=== PATIENT | male | born 1995 | race Caucasian/White ===

== ENCOUNTER → 2017-01-20 10:06 | Day surgery (SDC) | payer OTHER ==
[~2017-01-20 10:06] MED LIST: Bacitracin OINTMENT* 0.5% 0.5 oz TUBE ONE; Buffered Lidocaine 1% SYR 3ML* 3 ML/SYR SYRINGE INTRADERM ONE; Bupivacaine 0.25% W/EPI* 50 ML VIAL ONE; Dexamethasone IV* 4 MG/ML 1 ML (4 MG) IV SLOW PU ONE; Dexamethasone IV* 4 MG/ML 1 ML (4 MG) ONE; DiMENhydriNATE IV* 50 MG/ML VIAL IV PUSH PRN; EPHEDrine (Pressors)* 50 MG/ML VIAL ONE; Famotidine IV* 10 MG/ML 2 ML (20 mg) IV ONE; Famotidine IV* 10 MG/ML 2 ML (20 mg) ONE; HYDROmorphone INJ* 1 MG/ML CARPUJECT SYRINGE IV PRN; Ketorolac INJ* 30 MG/ML 1 ML VIAL ONE; Lidocaine 2% JELLY* 20 ML (for OR use) ONE; Lidocaine 2% PF * 5 ML VIAL ONE; Midazolam* 1 MG/ML 5 ML VIAL (5 MG) ONE; Ondansetron INJ* 2 MG/ML VIAL IV PRN; Ondansetron INJ* 2 MG/ML VIAL ONE; Phenylephrine INJ* 10 MG/ML 1 ML VIAL (10 MG) ONE; Propofol* 10 MG/ML 20 ML BTL IV PUSH ONE; ceFOXitin 2 GM IVPREMIX* 2 GM/50 ML BAG ONE; fentaNYL* 50 MCG/ML 2 ML VIAL (100 MCG VIAL) IV PRN; fentaNYL* 50 MCG/ML 2 ML VIAL (100 MCG VIAL) ONE; oxyCODONE/Acetamin 5/325 MG* TAB PO PRN
[2017-01-20 13:37] VITALS: BP 108/48
--- NOTE | 2017-01-20 20:04 | OP ---
DATE OF OPERATION: 01/20/17 - [facility] DATE OF : [birth year] SURGEON: Kev Tubbs MD [employer] SALESPERSON: Frannie Banuelos NP ANESTHESIOLOGIST: Rodney Andrade MD ANESTHESIA: Spinal anesthetic, local infiltration. PRE-OP DIAGNOSIS: Pilonidal disease. POST-OP DIAGNOSIS: Pilonidal disease. OPERATIVE PROCEDURE: Excision of pilonidal disease. DESCRIPTION OF PROCEDURE: The patient was supine on the operating table. After adequate spinal anesthetic, intravenous sedation, and intravenous antibiotics; he was placed in the prone radha-knife position. The area was clipped and prepped with Betadine, draped in a sterile fashion. Buttocks were taped apart. A probe was used to pass from the inferior most pilonidal sinus all the way out to the draining sinus tract. There was no pus at present, but there was clearly a chronic tract. Local anesthetic was administered. An elliptical incision approximately 3 x 8 cm was created. This was carried down through the full-thickness of the adipose and the entire tract and infected area was removed. This was undermined slightly and the adipose was brought together in the midline using 3-0 Vicryl. This created good closure and 3-0 Prolene was used for skin closure followed by sterile dressing. He tolerated the procedure well and was brought to recovery in good condition. There were no complications. No drains. Pathologic specimen was pilonidal disease. Sponge and instrument counts correct. Estimated blood loss less than 20 mL. [id number]/[id number] #: [id number] MTDD
== END | disposition home or self-care (01) ==
LOC: OR 10:06
PROVIDERS: ATTEND Surgery
DX: L05.91 Pilonidal cyst without abscess (principal); F17.210 Nicotine dependence, cigarettes, uncomplicated
CPT/HCPCS: 88304; A9270-GY; J0694; J1100; J1885; J2250; J2405; J2704; J3010

== ENCOUNTER 2018-04-20 14:42 | Emergency (ER) | payer OTHER ==
[2018-04-20 15:24] VITALS: BP 128/73
--- NOTE | 2018-04-20 16:06 | UC ---
Hand/Wrist HPI - HPI Summary HPI Summary: Fall last night from skateboard, with left wrist pain, swelling and restricted rom. Has used ibuprofen and acetaminophen for pain control. With fall, re-opened an abrasion on the RIGHT palm which now has purulent discharge, deep abrasion to the right foreleg. - History Of Current Complaint Chief Complaint: UCUpperExtremity Stated Complaint: LFT WRIST INJURY Time Seen by Provider: 04/20/18 15:45 Hx Obtained From: Patient, Family/Painting Department Supervisor - here with girlfriend Onset/Duration: Sudden Onset Severity Initially: Mild Severity Currently: Mild Pain Intensity: 4 Pain Scale Used: 0-10 Numeric Character Of Pain: Aching Aggravating Factor(s): Extension Alleviating Factor(s): Rest, OTC Meds Associated Signs And Symptoms: Positive: Swelling Related History: Dominant Hand Right - Allergies/Home Medications Allergies/Adverse Reactions: Allergies Allergy/AdvReac Type Severity Reaction Status Date / Time bee venom protein (honey bee) Allergy Swelling Verified 04/20/18 15:14 Home Medications: Home Medications Acetaminophen [Extra Strength Non-Aspirin] 1,000 mg PO Q6H PRN 04/20/18 [ History Confirmed 04/20/18] Ibuprofen TAB* [Advil TAB*] 400 mg PO Q6H PRN 04/20/18 [History Confirmed ] PMH/Surg Hx/FS Hx/Imm Hx Previously Healthy: Yes - Surgical History Surgical History: Yes Surgery Procedure, Year, and Place: Pilonidal cyst/sinus procedure - Family History Known Family History: Positive: None Family History: no known cardio vascular issues in family lineage-grandfather did have a pilondial cyst. Healthy living grandparents. 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 Lives: With Family Alcohol Use: Occasionally Substance Use Type: Marijuana Substance Use Comment - Amount & Last Used: occassionally Smoking Status (MU): Light Every Day Tobacco Smoker Type: Cigarettes Amount Used/How Often: 1-2/day Length of Time of Smoking/Using Tobacco: 4 yrs Have You Smoked in the Last Year: Yes - Immunization History Most Recent Influenza Vaccination: fall 2015 Review of Systems Constitutional: Negative Skin: Other - abrasions as per HPI Eyes: Negative ENT: Negative Respiratory: Negative Cardiovascular: Negative Gastrointestinal: Negative Genitourinary: Negative Motor: Negative Neurovascular: Negative Musculoskeletal: Arthralgia, Decreased ROM Neurological: Negative Psychological: Negative Is Patient Immunocompromised?: No All Other Systems Reviewed And Are Negative: Yes Physical Exam Triage Information Reviewed: Yes Appearance: Well-Appearing, Pain Distress - mild Vital Signs: Initial Vital Signs Temp 98.7 F 04/20/18 15:17 Pulse 78 04/20/18 15:17 Resp 18 04/20/18 15:17 BP 128/73 04/20/18 15:17 Pulse Ox 100 04/20/18 15:17 Respiratory Exam: Normal Cardiovascular Exam: Normal Musculoskeletal: Positive: ROM Limited @ - left wrist extension decreased to 30 degrees. Normal flexion. Diffuse swelling over dorsum of wrist and hand. Digital movements stiff but intact. Neurological Exam: Normal Neurological: Positive: Alert Skin Exam: Other - right proxomal palm with 1.5 cm area of abrasion with purulent discharge from center. Right mccray with triangular abrasion, almost full skin thickness proximally, approx 6 cm wide at top of lesion, approx 25 cm long Diagnostics - Laboratory Diagnostic Studies Completed/Ordered: xray left wrist is normal, normal alignment Hand/Wrist Course/Dx - Course Course Of Treatment: cephalexin for cellulitis; ice, wrap for left wrist. - Differential Dx/Diagnosis Differential Diagnosis/HQI/PQRI: Abrasion, Cellulitis, Sprain Provider Diagnoses: cellulitis right hand Discharge - Sign-Out/Discharge Documenting (check all that apply): Discharge/Admit/Transfer - Discharge Plan Condition: Stable Disposition: HOME Prescriptions: Cephalexin CAP* [Keflex 500 CAP*] 500 mg PO QID #20 cap Patient Education Materials: Cellulitis (ED), Wrist Sprain (ED) Forms: *Work Release Referrals: Non Staff,Doctor [Primary Care Provider] - Additional Instructions: Continue topical antibiotic to the deep abrasion on the right mccray. Take cephalexin for treatment of skin infection (cellulitis) of the right palm. This will also protect the mccray abrasion from becoming infected. Off work 04/22 due to injury. Use KYLE wrap to left wrist as needed for support and comfort. Continue ibuprofen and acetaminophen for control of pain. - Billing Disposition and Condition Condition: STABLE Disposition: HOME
--- NOTE | 2018-04-20 16:26 | RAD ---
INDICATION: Posterior and ulnar sided wrist pain after a skateboarding injury COMPARISON: None. TECHNIQUE: 3 views left wrist. REPORT: The visualized bones are properly aligned and well corticated. The joint spaces are normal.There is no fracture, dislocation or other focal osseous abnormality. IMPRESSION: Normal radiograph of the left wrist. If the patient's symptoms persist, follow-up imaging is recommended.
== END 2018-04-20 16:54 | disposition home or self-care (01) ==
LOC: UCCORT 14:42
DX: L03.113 Cellulitis of right upper limb (principal); F17.210 Nicotine dependence, cigarettes, uncomplicated; Z91.030 Bee allergy status; V00.131A Fall from skateboard, initial encounter; Y92.9 Unspecified place or not applicable
CPT/HCPCS: 99212; G0463